=== PATIENT | male | born 1950 | race Caucasian/White ===

== ENCOUNTER 2020-05-12 18:19 | Emergency (ER) | payer OTHER ==
[~2020-05-12] VITALS: Ht 180.3 cm; Wt 79.8 kg
[~2020-05-12 18:19] MED LIST: HYDACE5 PO; NAPR500 PO
[2020-05-12] MEDS ORDERED: CYCL10 PO (22:21)
[2020-05-12] MEDS ORDERED: IBU600 MG PO (22:21)
[2020-05-12] MEDS ORDERED: LIDO700A20 TOP (22:21)
== END 2020-05-12 22:48 | disposition home or self-care (01) ==
LOC: ER 18:19
DX: G89.29 Other chronic pain (principal); M54.5 Low back pain; F17.210 Nicotine dependence, cigarettes, uncomplicated; Z88.5 Allergy status to narcotic agent; Z79.891 Long term (current) use of opiate analgesic; Z87.81 Personal history of (healed) traumatic fracture
CPT/HCPCS: 96372; 99283; J1885

== ENCOUNTER 2020-08-31 20:39 | Emergency (ER) | payer OTHER ==
[~2020-08-31] VITALS: Ht 180.3 cm; Wt 79.4 kg
[~2020-08-31 20:39] MED LIST changes: +CYCL10 PO; +IBU600 MG PO; +LIDO700A20 TOP
[2020-08-31] MEDS ORDERED: TAMS.4ER PO (21:08)
[2020-08-31] MEDS ORDERED: METPRE4DP PO (23:13)
[2020-08-31] MEDS ORDERED: Robaxin-750750 MG PO (23:13)
== END 2020-08-31 23:26 | disposition home or self-care (01) ==
LOC: ER 20:39
DX: M54.16 Radiculopathy, lumbar region (principal); Z88.5 Allergy status to narcotic agent; Z79.899 Other long term (current) drug therapy
CPT/HCPCS: 72100; 96372; 99283-25; A9270; J1100; J1170

== ENCOUNTER 2020-09-02 19:12 | Emergency (ER) | payer OTHER ==
[~2020-09-02] VITALS: Ht 180.3 cm; Wt 79.4 kg
[~2020-09-02 19:12] MED LIST changes: +METPRE4DP PO; +Robaxin-750750 MG PO; +TAMS.4ER PO
[2020-09-02] MEDS ORDERED: IBU800 M1 PO (19:21)
[2020-09-02] MEDS ORDERED: FINA5 PO (19:22)
[2020-09-02] MEDS ORDERED: CYCL10 PO (19:24)
[2020-09-02] MEDS ORDERED: LIDO700A20 TOP (21:20)
== END 2020-09-02 21:29 | disposition home or self-care (01) ==
LOC: ER 19:12
DX: M54.5 Low back pain (principal); G89.29 Other chronic pain; Z88.5 Allergy status to narcotic agent; Z79.899 Other long term (current) drug therapy
CPT/HCPCS: 96374; 96375; 99284-25; A9270; J1170; J3010

== ENCOUNTER 2022-05-23 20:59 | Emergency (ER) | payer OTHER ==
[~2022-05-23] VITALS: Ht 180.3 cm; Wt 78.5 kg
[~2022-05-23 20:59] MED LIST changes: +FINA5 PO; +IBU800 M1 PO
[2022-05-23] MEDS ORDERED: IBU800 M1 PO (21:17)
[2022-05-23] MEDS ORDERED: ROSUVASTATIN CA20 MG PO (21:18)
[2022-05-23] MEDS ORDERED: FINA5 (21:18)
[2022-05-23] MEDS ORDERED: Norco 5-325 Ta1 EACH PO (21:18)
== END 2022-05-23 22:20 | disposition home or self-care (01) ==
LOC: ER 20:59
DX: S20.211A Contusion of right front wall of thorax, initial encounter (principal); Z88.5 Allergy status to narcotic agent; Z79.899 Other long term (current) drug therapy; X50.0XXA Overexertion from strenuous movement or load, initial encounter
CPT/HCPCS: 71046; 99283-25